=== PATIENT | male | born 1975 | race Caucasian/White ===

== ENCOUNTER 2018-03-26 22:14 | Emergency (ER) | payer SELFPAY ==
[~2018-03-26] VITALS: Ht 170.2 cm; Wt 108.9 kg
[2018-03-26 22:18] VITALS: BP_SYST 117
[2018-03-27] MEDS ORDERED: NACL 0.9% 1,000 ML IV ONE
[2018-03-27] MEDS ORDERED: PANTOPRAZOLE SODIUM 40 MG/VIAL (PROTONIX) IVP ONE
[2018-03-27 01:06] LABS: BASOPHILS # (AUTO) 0.1 K/uL (0.0-0.2); BASOPHILS % (AUTO) 0.8 % (0.0-2.0); EOSINOPHILS # (AUTO) 0.5 K/uL (0.0-0.4); HEMATOCRIT 45.7 % (36-54); HEMOGLOBIN 15.6 g/dL (14.0-18.0); LYMPHOCYTES # (AUTO) 3.1 K/uL (1.0-5.5); LYMPHOCYTES % (AUTO) 34.3 % (20.5-51.5); MEAN CORPUSCULAR HEMOGLOBIN 31 pg (27-31); MEAN CORPUSCULAR HGB CONC 34 % (32-36); MEAN CORPUSCULAR VOLUME 91 fL (79.0-98.0); MONOCYTES # (AUTO) 0.6 K/uL (0.0-1.0); MONOCYTES % (AUTO) 6.9 % (1.7-9.3); NEUTROPHILS # (AUTO) 4.9 K/uL (1.8-7.7); PLATELET COUNT (AUTO) 148 K/uL (130-430); RED BLOOD CELL COUNT(AUTO) 5.03 MIL/uL (4.2-6.2); WHITE BLOOD COUNT (AUTO) 9.2 K/uL (4.8-10.8)
[2018-03-27 01:19] LABS: CALCIUM 8.3 mg/dL (8.4-11.0); CREATININE 0.92 mg/dL (0.55-1.30); POTASSIUM 3.4 mmol/L (3.5-5.1)
[2018-03-27 01:24] LABS: ALBUMIN 3.3 g/dL (3.4-4.8); TOTAL BILIRUBIN 0.2 mg/dL (0.0-1.0)
[2018-03-27 02:02] VITALS: BP_SYST 114
== END 2018-03-27 01:47 | disposition home or self-care (01) ==
LOC: SED 22:14
DX: F10.229 Alcohol dependence with intoxication, unspecified (principal); F17.200 Nicotine dependence, unspecified, uncomplicated; Y90.5 Blood alcohol level of 100-119 mg/100 ml
CPT/HCPCS: 36415; 80053; 85025; 96361; 96374; 99284; C9113; G0482; J7030

== ENCOUNTER 2023-03-02 01:28 | Emergency (ER) | payer SELFPAY ==
[~2023-03-02] VITALS: Ht 175.3 cm; Wt 108.9 kg
[2023-03-02 01:34] VITALS: BP_SYST 127
--- NOTE | 2023-03-02 01:34 | NUR ---
Patient to ER bed GLEZ to gon for evaluation. Side rails up. Report given to FELI MCKEON.
--- NOTE | 2023-03-02 01:58 | NUR ---
Pt amanda from home, ambulated to [facility]. Per officer pt brought in for medical clearance due to HTN. Pt A&Ox4, able to make needs known. Pt denies pain at this time. Pt denies N/V/D. Pt denies SOB and chest pain. Pt denies fever and chills. Safety precautions in place.
--- NOTE | 2023-03-02 02:04 | NUR ---
ER Dr. Jc examining patient.
--- NOTE | 2023-03-02 02:12 | NUR ---
Patient given written and verbal discharge instructions and verbalizes understanding. ER Dr Jc discussed with patient the results and treatment provided. Patient in stable condition. ID arm band removed. Patient educated on pain management and to follow up with PMD. Pain Scale 0/10. Opportunity for questions provided and answered. Medication side effect fact sheet provided.
[2023-03-02 02:13] VITALS: BP_SYST 127
== END 2023-03-02 02:13 ==
LOC: SED 01:28
DX: I10 Essential (primary) hypertension (principal); Z79.899 Other long term (current) drug therapy
CPT/HCPCS: 99283